=== PATIENT | female | born 1990 | race American Indian/Alaskan Native ===

== ENCOUNTER 2018-12-21 01:51 | Emergency (ER) | payer SELFPAY ==
[2018-12-21 01:57] VITALS: BP 114/78
[2018-12-21 02:44] LABS: Hematocrit 36.7 % (30.3-42.9); Hemoglobin 12.2 gm/dl (10.1-14.3); Mean Corpuscular HGB Conc 33 % (30-34); Mean Corpuscular Volume 89 fl (79-97); Platelet Count 221 K/mm3 (140-440); Red Blood Count 4.14 M/mm3 (3.65-5.03)
[2018-12-21] MEDS ORDERED: PEPCID IV ONE (03:05)
[2018-12-21] MEDS ORDERED: ZOFRAN IV ONE (03:05)
[2018-12-21] MEDS ORDERED: MORPHINE IV ONE (03:06)
[2018-12-21 03:09] LABS: Basophils % (Auto) 0.3 % (0.0-1.8); Eosinophils # (Auto) 0.1 K/mm3 (0.0-0.4); Eosinophils % (Auto) 1.7 % (0.0-4.3); Lymphocytes # (Auto) 1.8 K/mm3 (1.2-5.4); Lymphocytes % (Auto) 27.9 % (13.4-35.0); Monocytes # (Auto) 0.5 K/mm3 (0.0-0.8); Monocytes % (Auto) 8.1 % (0.0-7.3)
[2018-12-21 03:25] LABS: Alanine Aminotransferase 20 units/L (7-56); Albumin 4.3 g/dL (3.9-5); BUN/Creatinine Ratio 20; Blood Urea Nitrogen 14 mg/dL (7-17); Calcium 9.5 mg/dL (8.4-10.2); Hemolysis Index 8
--- NOTE | 2018-12-21 04:28 | Cat Scan Report ---
CT ABDOMEN AND PELVIS WITH CONTRAST INDICATION: abdominal pain, cramping, nausea, vomiting, diarrhea CONTRAST: 100 cc Omnipaque 300 IV COMPARISON: None available. All CT scans at this location are performed using CT dose reduction for ALARA by means of automated e xposure control. FINDINGS: Lung bases are clear. No pneumoperitoneum is seen. No focal inflammatory changes are seen. No urinary or bowel obstructive changes are noted. Appendix appears within normal limits. Gallbladder shows no abnormalities. Bilateral adnexal cystic areas are seen including what appears to be a partially collapsed cyst on th e left. On the right a cystic area is seen measuring 3.4 cm. Only a small amount of free fluid is see n in the pelvis. IMPRESSION: No definite acute abnormalities are seen. Possible recent collapse of a left ovarian cyst . Moderate sized right ovarian cyst for which ultrasound follow-up is recommended. Signer Name: Federico Restrepo MD Signed: 12/21/2018 4:24 AM Workstation Name: [id number]
--- NOTE | 2018-12-21 05:38 | Emergency Department Report ---
ED Abdominal Pain HPI - General Chief Complaint: Abdominal Pain Stated Complaint: VOMITING, ABDOMINAL PAIN Source: patient Mode of arrival: Ambulatory Limitations: No Limitations - History of Present Illness Initial Comments: Patient is a 28-year-old -[place] female with no past medical history who presents to ED with complaint of acute onset of persistent diffuse abdominal pain was in the lower abdomen and periumbilical area, nausea and vomiting and diarrhea for the last 2 days. Patient admits to eating at a restaurant at different times in the last 2 days with worsening symptoms. Patient denies fever, chills, dizziness, chest pain, shortness of breath, vaginal bleeding, dysuria, urinary frequency and hesitancy, sore throat, vaginal discharge, or hematochezia and hematemesis. MD Complaint: abdominal pain, other (nausea and vomiting) -: Sudden, days(s) (2) Location: diffuse Radiation: none Migration to: no migration Severity: severe Severity scale (0 -10): 7 Quality: cramping, aching, sharp Consistency: intermittent Improves With: nothing Worsens With: nothing Context: possible food poisoning Associated Symptoms: denies other symptoms, nausea, vomiting, diarrhea. denies: fever, chills, constipation, dysuria, hematemesis, hematochezia, melena, hematuria - Related Data LMP Date: 12/15/18 Previous Rx's Medication Instructions Recorded Last Taken Type Dicyclomine [Bentyl] 20 mg PO Q6H PRN #20 tablet 12/21/18 Unknown Rx Ondansetron [Zofran Odt] 4 mg PO Q6HR PRN #20 tab.rapdis 12/21/18 Unknown Rx raNITIdine HCl [Zantac] 150 mg PO Q12H #30 tablet 12/21/18 Unknown Rx traMADol [Ultram] 50 mg PO Q6HR PRN #10 tablet 12/21/18 Unknown Rx Allergies Allergy/AdvReac Type Severity Reaction Status Date / Time No Known Allergies Allergy Verified 12/21/18 01:57 ED Review of Systems ROS: Stated complaint: VOMITING, ABDOMINAL PAIN Other details as noted in HPI Constitutional: denies: chills, fever Eyes: denies: eye pain, eye discharge, vision change ENT: denies: ear pain, throat pain Respiratory: denies: cough, shortness of breath, wheezing Cardiovascular: denies: chest pain, palpitations Endocrine: no symptoms reported Gastrointestinal: abdominal pain, nausea, vomiting, diarrhea Genitourinary: denies: urgency, dysuria, discharge Musculoskeletal: denies: back pain, joint swelling, arthralgia Skin: denies: rash, lesions Neurological: denies: headache, weakness, paresthesias Psychiatric: denies: anxiety, depression Hematological/Lymphatic: denies: easy bleeding, easy bruising ED Past Medical Hx - Past Medical History Previous Medical History?: No - Surgical History Past Surgical History?: No - Social History Smoking Status: Never Smoker Substance Use Type: None - Medications Home Medications: Home Medications Medication Instructions Recorded Confirmed Last Taken Type Dicyclomine [Bentyl] 20 mg PO Q6H PRN #20 tablet 12/21/18 Unknown Rx Ondansetron [Zofran Odt] 4 mg PO Q6HR PRN #20 tab.rapdis 12/21/18 Unknown Rx raNITIdine HCl [Zantac] 150 mg PO Q12H #30 tablet 12/21/18 Unknown Rx traMADol [Ultram] 50 mg PO Q6HR PRN #10 tablet 12/21/18 Unknown Rx ED Physical Exam - General Limitations: No Limitations General appearance: alert, in no apparent distress - Head Head exam: Present: atraumatic, normocephalic, normal inspection - Eye Eye exam: Present: normal appearance, PERRL, EOMI. Absent: scleral icterus, conjunctival injection, nystagmus Pupils: Present: normal accommodation - ENT ENT exam: Present: normal exam, normal orophraynx, mucous membranes moist, TM's normal bilaterally, normal external ear exam - Neck Neck exam: Present: normal inspection, full ROM - Respiratory Respiratory exam: Present: normal lung sounds bilaterally. Absent: respiratory distress, wheezes, rhonchi, chest wall tenderness, decreased breath sounds, prolonged expiratory - Cardiovascular Cardiovascular Exam: Present: regular rate, normal rhythm, normal heart sounds. Absent: systolic murmur, diastolic murmur, rubs, gallop - GI/Abdominal GI/Abdominal exam: Present: soft, tenderness (Palpable periumbilical and LLQ ten derness), normal bowel sounds. Absent: guarding, hyperactive bowel sounds, organomegaly, bruit - Rectal Rectal exam: Present: deferred - Bi-manual exam: Present: other (Deferred, patient choice) - Extremities Exam Extremities exam: Present: normal inspection, full ROM, normal capillary refill - Back Exam Back exam: Present: normal inspection - Neurological Exam Neurological exam: Present: alert, oriented X3, CN II-XII intact, normal gait, reflexes normal - Psychiatric Psychiatric exam: Present: normal affect, normal mood - Skin Skin exam: Present: warm, dry, intact, normal color. Absent: rash ED Course Vital Signs 12/21/18 01:55 Temperature 97.5 F L Pulse Rate 90 Respiratory 18 Rate Blood Pressure 114/78 O2 Sat by Pulse 99 Oximetry - Reevaluation(s) Reevaluation #1: 12/21/18 05:37 This is a 28-year-old female who presented to the ED with persistent nausea and vomiting, diarrhea and abdominal pain for 2 days. In the ED, patient is alert and oriented 3 and especially in distress with normal vital signs. This is also under all unremarkable and non-actionable including urinalysis. Abdomen pelvis CT scan with contrast shows a possible recent collapse of a left ovarian cyst. Moderate sized right ovarian cyst for which ultrasound follow-up is recommended. The right ovarian cyst measures 3.4 cm. Only a small amount of free fluid is seen in the pelvis. There are no other acute abnormal findings in this study. Patient was treated for pain in the ED and on reevaluation, patient's pain is well controlled as well as nausea and vomiting. Patient was discharged home on antiemetics and pain medications and advised to follow-up with her primary care physician in 7-10 days for reevaluation or return to the ED immediately if symptoms get worse. 12/21/18 05:38 ED Medical Decision Making - Lab Data Result diagrams: 12/21/18 02:30 12/21/18 02:30 - Radiology Data Radiology results: report reviewed, image reviewed Findings [facility] [address] [place] [address] Cat Scan Report Signed Patient: ISRAEL SRIVASTAVA MR# : [id number] : 1990 Acct:[id number] Age/Sex: 28 / F ADM Date: 12/21/18 Loc: ED Attending Dr: Ordering Physician: CLAUDE CROWLEY Date of Service: 12/21/18 Procedure(s): CT abdomen pelvis w con Accession Number(s): [id number] cc: CLAUDE CROWLEY CT ABDOMEN AND PELVIS WITH CONTRAST INDICATION: abdominal pain, cramping, nausea, vomiting, diarrhea CONTRAST: 100 cc Omnipaque 300 IV COMPARISON: None available. All CT scans at this location are performed using CT dose reduction for ALARA by means of automated exposure control. FINDINGS: Lung bases are clear. No pneumoperitoneum is seen. No focal inflammatory changes are seen. No urinary or bowel obstructive changes are noted. Appendix appears within normal limits. Gallbladder shows no abnormalities. Bilateral adnexal cystic areas are seen including what appears to be a partially collapsed cyst on the left. On the right a cystic area is seen measuring 3.4 cm. Only a small amount of free fluid is seen in the pelvis. IMPRESSION: No definite acute abnormalities are seen. Possible recent collapse of a left ovarian cyst. Moderate sized right ovarian cyst for which ultrasound follow-up is recommended. Signer Name: Federico Restrepo MD Signed: 12/21/2018 4:24 AM Workstation Name: [id number] Transcribed By: GJ Dictated By: Federico Restrepo MD Electronically Authenticated By: Federico Restrepo MD Signed Date/Time: 12/21/18 0424 - Medical Decision Making This is a 28-year-old female who presented to the ED with persistent nausea and vomiting, diarrhea and abdominal pain for 2 days. In the ED, patient is alert and oriented 3 and especially in distress with normal vital signs. This is also under all unremarkable and non-actionable including urinalysis. Abdomen pelvis CT scan with contrast shows a possible recent collapse of a left ovarian cyst. Moderate sized right ovarian cyst for which ultrasound follow-up is recommended. The right ovarian cyst measures 3.4 cm. Only a small amount of free fluid is seen in the pelvis. There are no other acute abnormal findings in this study. Patient was treated for pain in the ED and on reevaluation, patient's pain is well controlled as well as nausea and vomiting. Patient was discharged home on antiemetics and pain medications and advised to follow-up with her primary care physician in 7-10 days for reevaluation or return to the ED immediately if symptoms get worse. - Differential Diagnosis Ovarian cysts; Gastroenteritis; GERD; Pancreatitis; Appendicitis; UTI Critical care attestation.: If time is entered above; I have spent that time in minutes in the direct care of this critically ill patient, excluding procedure time. ED Disposition Clinical Impression: Right ovarian cyst, Nausea, vomiting and diarrhea, Viral gastroenteritis Abdominal pain Qualifiers: Abdominal location: generalized Qualified Code(s): R10.84 - Generalized abdominal pain Disposition: TO HOME OR SELFCARE Is pt being admited?: No Does the pt Need Aspirin: No Condition: Stable Instructions: Abdominal Pain (ED), Acute Nausea and Vomiting (ED), Ovarian Cyst (ED) Additional Instructions: Take medications with food, drink plenty and fibula primary care physician in 5- 7 days for reevaluation and return to the ED immediately if symptoms get worse. Prescriptions: Dicyclomine [Bentyl] 20 mg PO Q6H PRN #20 tablet PRN Reason: Pain , Severe (7-10) traMADol [Ultram] 50 mg PO Q6HR PRN #10 tablet PRN Reason: Pain raNITIdine HCl [Zantac] 150 mg PO Q12H #30 tablet Ondansetron [Zofran Odt] 4 mg PO Q6HR PRN #20 tab.rapdis PRN Reason: Nausea Referrals: PRIMARY CARE,MD [Primary Care Provider] - 3-5 Days Time of Disposition: 05:43 Print Language: [place]
== END 2018-12-21 06:05 | disposition home or self-care (01) ==
LOC: ED 01:51
DX: N83.201 Unspecified ovarian cyst, right side (principal); A08.4 Viral intestinal infection, unspecified; R11.2 Nausea with vomiting, unspecified
CPT/HCPCS: 36415; 74177; 80053; 83690; 84703; 85025; 96374; 96375; 99284; J2270; J2405; Q9967